=== PATIENT | male | born 1945 | race Two or more races ===

== ENCOUNTER → 2017-07-11 | Outpatient (CLI) | payer MEDICARE, MEDICAID ==
[~2017-07-11] MED LIST: AMLODIPINE BESY10 MG ORAL; FLOMAX0.4 MG ORAL; LISINOPRIL10 MG ORAL; PROSCAR5 MG ORAL; RENA-VITE TABL0.8 M1 PO; RENVELA800 MG PO; RESTASIS1 EACH BOTH EYES; VIAGRA100 MG PO; VITAMIN D1000 UNI1 ORAL
== END | disposition home or self-care (01) ==
LOC: VAS 08:54
DX: M79.605 Pain in left leg (principal); N18.6 End stage renal disease; Z94.0 Kidney transplant status; I12.0 Hypertensive chronic kidney disease with stage 5 chronic kidney disease or end stage renal disease
CPT/HCPCS: 93925; 93970